=== PATIENT | male | born 1950 | race Hispanic/Latino ===

== ENCOUNTER 2016-09-22 09:45 | Emergency (ER) | payer SELFPAY ==
[~2016-09-22] VITALS: Ht 160 cm; Wt 81.8 kg
[2016-09-22 09:50] VITALS: BP 113/81; PULSE 72; RESP 15; O2SAT 95
--- NOTE | 2016-09-22 10:40 | ED.REPORT ---
[id number] Illness Date of Service Sep 22, 2016 ED Provider: Leticia Cleary MD 66 y/o male who reports no significant past medical history reports to the ED with redness, pain, and tearing to bilat eyes for 2 days. She also complains of a sore throat that started 2 days ago prior to the eye pain, and a L earache for 3 weeks. Pt has not taken any medications to treat his condition. Pt has no PCP. Nursing Notes Stated Complaint: RIGHT EYE RED Chief Complaint: FLU/Cold Symptoms Nursing Notes Reviewed: Yes Allergies: Coded Allergies: No Known Allergies (Unverified , 09/22/16) Scheduled Gentamicin Sulfate (Gentamicin 0.3% Ophthalmic Solution) 5 Ml Drops 2 DRP RIGHT_ EYE QID General Time Seen by Provider: 10:35 Chief Complaint Sore throat Hx Obtained From: Patient Onset Occurred: 2 days ago Progression Since Onset: Constant Quality: Painful (eyes) Associated with: Reports: Earache Past Medical History Past Medical History denies Past Surgical History none reported Smoking History Unknown if Ever Smoker Review of Systems Eyes: Reports: Discharge bilateral, Eye pain bilateral, Redness bilateral Ears / Nose / Throat: Reports: Earache left, Throat pain Complete sys rev & neg: except as marked. Physical Exam Initial Vital Signs Vital Signs (First) Date Time Temp Pulse Resp B/P Pulse Ox O2 Delivery O2 Flow Rate FiO2 09/22/16 09:50 37 72 15 113/81 95 Room Air Initial VS: Reviewed Head / Eyes: Atraumatic, Normocephalic, PERRL Extremities: Vascular intact, Neuro intact Psychiatric: Mood/affect normal, Behavior normal, Normal thought content General/Constitutional: Awake, Alert Neck: Full range of motion Soft Tissue Neck: Positive: Cervical adenopathy L... (Anterior), Cervical adenopathy R... (Anterior) Respiratory / Chest: Breath sounds NL, Breath sounds = bilat, No respiratory distress, No rales, No rhonchi, No wheezing, No retractions Cardiovascular: Heart rate NL, Regular rhythm, Heart sounds NL, No murmurs, Peripheral circulation NL Skin: Warm, Dry Neurologic: Oriented X3, Speech NL Head / Eyes: Atraumatic, Normocephalic Conjunctiva / Sclera: Positive: Injected left, Injected right ENT: Atraumatic, Tympanic membs NL, Ext aud canal NL Pharynx / Tonsils / Uvula: Positive: Pharyngeal erythema, Negative: Tonsillar exudate L, Tonsillar exudate R Re-Evaluation & MDM Re-Evaluation/Progress : Time of Eval: 11:00 Re-Evaluation/Progress Note: Discussed plan for discharge and follow up. All questions addressed. Counseled Regarding: Diagnosis, Need for follow-up, When/why to return to ED Patient Discharge & Departure Impression: Primary Impression: Upper respiratory infection URI type: unspecified URI Qualified Code: J06.9 - Acute upper respiratory infection, unspecified Disposition: Home Discharge Condition All VS Reviewed: Yes Condition: Stable Patient Instructions: Upper Respiratory Infection (ED) Your red eyes are likely due to the virus. If you find that the right eye is getting worse - by Tuesday if there is more redness, discharge and pain - then start the gentamycin eye drops. Use 2 drops in the eyes 4 times per day for 3 days. I hope you feel better soon. Ebenezere Attestation Portions of this note were transcribed by Leno Abernathy and Radha Dillon. I, Dr. Cleary personally performed the history, physical exam and medical decision -making; I reviewed and confirmed the accuracy of the information in the transcribed note. Signed by: Comfort Strange, [09/22/16] and [[id number]]. Leticia Cleary MD Sep 22, 2016 10:40 Leno Abernathy Sep 22, 2016 11:31 Radha Dillon Sep 22, 2016 11:56
[2016-09-22] MEDS ORDERED: GENT5DRO26 RIGHT_EYE (11:01)
== END 2016-09-22 11:40 | disposition home or self-care (01) ==
LOC: SED 09:45 → EDBD 09:45 → MERGE 09:45 → SED 11:40
DX: J06.9 Acute upper respiratory infection, unspecified (principal)